=== PATIENT | male | born 1990 | race Caucasian/White ===

== ENCOUNTER 2017-02-24 19:01 | Emergency (ER) | payer SELFPAY ==
[~2017-02-24] VITALS: Ht 180.3 cm; Wt 87.0 kg
[2017-02-24 19:02] VITALS: BP 159/84; PULSE 71; RESP 16; TEMP 97.7; O2SAT 97
[2017-02-24] MEDS ORDERED: BACT800T5 PO (19:25)
[2017-02-24] MEDS ORDERED: TYLETAB34 PO (19:25)
--- NOTE | 2017-02-24 19:25 | PD ---
HPI . Spider bite Chief Complaint: Bite or Sting Time Seen by Provider: 19:12 Travel History International Travel<30 days: No Contact w/Intl Traveler<30days: No Traveled to known affect area: No History of Present Illness HPI Patient presents with chief complaint of spider bite on his right chest. He states that he awakened 2 days ago with a red spot on his chest which was stinging. He reports that it has gotten progressively worse since that time. He subsequently presents to [facility] for evaluation and treatment. There has been no drainage from the wound. He has had no fever. Symptoms are mild. [facility] Past Medical History Medical History: Denies Significant Hx Diminished Hearing: No Past Surgical History Surgical History: No Previous Surgery Social History Alcohol Use: No (HX OF) Tobacco Use: Yes (1/2 PPD) Substance Use: Yes Allergies-Medications (Allergen,Severity, Reaction): Coded Allergies: No Known Allergies (Unverified , 02/24/17) Reported Meds & Prescriptions Reported Meds & Active Scripts Active No Active Prescriptions or Reported Medications Review of Systems Except as stated in HPI: all other systems reviewed are Neg General / Constitutional: No: Fever, Chills Skin: Positive Lesions Physical Exam Narrative GENERAL: Awake and alert and in no acute distress. SKIN: Warm and dry. He has an area of induration on the right chest wall. It is about 4 cm in diameter. There is no fluctuance. HEAD: Normocephalic/atraumatic. EYES: Pupils are equal. Extraocular movements are intact. ENT: NECK: Normal range of motion. CARDIOVASCULAR: Regular rate and rhythm. RESPIRATORY: Nonlabored respirations. ABDOMEN: : MUSCULOSKELETAL: Atraumatic. NEUROLOGICAL: Nonfocal. PSYCHIATRIC: Appropriate mood and affect. Data Data Last Documented VS Vital Signs Date Time Temp Pulse Resp B/P (MAP) Pulse Ox O2 Delivery O2 Flow Rate FiO2 02/24/17 19:02 97.7 71 16 159/84 (109) 97 Room Air Orders Orders Sulfamet-Trimeth Ds 800-160 Mg (Bactrim (02/24/17 19:30) Acetamin-Codeine 300-30 Mg (Tylenol-Code (02/24/17 19:30) MDM Medical Decision Making Medical Screen Exam Complete: Yes Emergency Medical Condition: Yes Differential Diagnosis My differential diagnosis closed but is not limited to abscess, cyst, lipoma Narrative Course Patient presents with an abscess on the right chest wall. It is not ready for drainage yet. He will be discharged on Septra and Tylenol with Codeine. He will be instructed to return here in 2 days for recheck and possible I&D at that time. Diagnosis Primary Impression: Abscess Patient Instructions: Abscess (ED), General Instructions Additional Instructions: Return here in 2 days for recheck Med/Other Pt SpecificInfo: Prescription(s) given Scripts Acetaminophen-Codeine (Tylenol-Codeine #3) 300-30 mg Tab 1 TAB PO Q4H Y for PAIN, #12 TAB 0 Refills Prov: Gin Mirza MD 02/24/17 Sulfamethoxazole-Trimethoprim (Bactrim DS) 800-160 Mg Tab 1 TAB PO BID for Infection, #20 TAB 0 Refills Prov: Gin Mirza MD 02/24/17 Disposition: 01 DISCHARGE HOME Condition: Stable Gin Mirza MD Feb 24, 2017 19:25
[2017-02-24] MEDS ORDERED: SULFAMETHOXAZOLE-TRIMETHOPRIM DS 800-160 MG TAB PO ONE (19:30)
[2017-02-24] MEDS ORDERED: ACETAMINOPHEN/CODEINE 300 MG/30 MG TAB PO ONE (19:30)
== END 2017-02-24 19:46 | disposition home or self-care (01) ==
LOC: NEPD 19:01
DX: L02.213 Cutaneous abscess of chest wall (principal); F17.200 Nicotine dependence, unspecified, uncomplicated
CPT/HCPCS: 99284